=== PATIENT | female | born 1965 | race Caucasian/White ===

== ENCOUNTER 2017-09-17 02:02 | Emergency (ER) | payer BC, OTHER ==
[2017-09-17 02:26] VITALS: BMI 33.1
--- NOTE | 2017-09-17 02:44 | DR.GENAD ---
HPI - PCP Primary Care Physician: EASTON - Complaint/Symptoms Chief Complaint Doctors Comments: Demetrius fell in while in [facility], [place] bryson of abdomen and chest was negative. She presents today complaining of abdomen pain, dysuria and chest wall pain. Chief Complaint:: PT STATES" I FELL IN THE [facility] A WEEK AGO AND I HURT ON MY RT BREAST AREA WHERE MY RIBS ARE. MY FEET ARE ALWAYS COLD I WEAR SOCKS AND THEY STILL DON'T GET WARM I'M ALSO HURTING IN MY LOWER RT SIDE I BEEN SEEING DR RUBALCAVA FOR KIDNEY STONES SO I'M NOT SURE IF THAT IS WHAT IS WRONG" - Source History Provided: Patient - Mode of Arrival Mode of Arrival: Ambulatory - Timing Onset of Chief Complaint: 09/08/17 PMH - PMH Past Medical History: Yes Past Medical History: Anemia, Coronary Artery Disease, Diabetes, Dyslipidemia, Hypertension Past Surgical History: Yes Surgical History: Cholecystectomy, GAM[employer]ING [employer]OR Surgery Past Surgical History Comment: PACEMAKER - Family History History of Family Medical Conditions: Yes Family Medical History: Diabetes Mellitus, Cancer, Coronary Artery Disease, Heart Failure, Hypertension - Social History Type of Tobacco Use: Cigarettes Alcohol Use: None Do you use any recreational Drugs:: No Lives With: Family Lives Where: Home - infectious screening In the last 2 months have you had wt loss of >10#?: NO Have you had fever, night sweats or hemotysis?: No Have you traveled outside the country in the last 6 months?: No Isolation: Standard ROS - Review of Systems Eyes: No Symptoms Reported ENTM: No Symptoms Reported Respiratoy: No Symptoms Reported Cardiovascular: No Symptoms Reported Gastrointestinal/Abdominal: No Symptoms Reported Genitourinary: No Symptoms Reported Neurological: No Symptoms Reported Musculoskeletal: No Symptoms Reported Integumentary: No Symptoms Reported Hematologic/Lymphatic: No Symptoms Reported Endocrine: No Symptoms Reported Psychiatric: No Symptoms Reported All Other Systems: Reviewed and Negative PE - Vital Signs Vitals: Temperature 97.3 F Pulse Rate 84 Respiratory Rate 16 Blood Pressure 179/81 O2 Sat by Pulse Oximetry 96 - General General Appearance: Alert, In No Apparent Distress - Head Head Exam: Normal Inspection, Atraumatic - Eyes Eye exam: Normal Appearance, PERRL, EOMI - ENT ENT Exam: Normal Exam, Normal Oropharynx External Ear Exam: Normal External Inspection TM/Canal Exam: Bilateral Normal Nose Exam: Normal Nose Exam Mouth Exam: Normal Inspection Throat Exam: Normal Inspection - Neck Neck Exam: Normal Inspection, Full ROM - Chest Chest Inspection: Normal Inspection - Respiratory Respiratory Exam: Normal Lung Sounds Bilat Respiratory Exam: Bilateral Clear to Auscultation - Cardiovascular Cardiovascular Exam: Regular Rate, Normal Rhythm - Abdominal Exam Abdominal Exam: Normal Inspection, Normal Bowel Sounds, Soft, Distention Abdominal Tenderness: RLQ, LLQ, Suprapubic - Extremities Extremities Exam: Normal Inspection, Full ROM - Back Back Exam: Normal Inspection, Full ROM - Neurologic Neurological Exam: Alert, Oriented X3, CN II-XII Intact - Psychiatric Psychiatric Exam: Normal Affect - Skin Skin Exam: Warm, Dry, Intact Course - Treatment Treatment: Patient states that she usually run high glucose; she will be able to get down when she goes home. - Reevaluation 1st: Unchanged ROR - Labs Reviewed Laboratory Results Reviewed?: Yes (Urine: leukocyte +, +1 bld) Result Diagrams: 09/17/17 03:35 09/17/17 03:35 Laboratory: WBC 8.3 X10^3/uL (3.6-10.0) 09/17/17 03:35 RBC 4.26 X10^6/uL (3.5-5.4) 09/17/17 03:35 Hgb 12.3 g/dL (12.0-16.0) 09/17/17 03:35 Hct 37.7 % (36.0-47.0) 09/17/17 03:35 MCV 88.4 fL (80.0-100.0) 09/17/17 03:35 MCH 28.8 pg (27.0-34.0) 09/17/17 03:35 MCHC 32.6 g/dL (33.0-35.0) L 09/17/17 03:35 RDW 14.4 % (11.6-16.5) 09/17/17 03:35 Plt Count 309 X10^3/uL (150.0-450.0) 09/17/17 03:35 MPV 7.8 fL (7.4-11.0) 09/17/17 03:35 Neut % 69.0 % (42.0-75.0) 09/17/17 03:35 Lymph % 22.0 % (21.0-51.0) 09/17/17 03:35 Rooks % 6.1 % (0.0-13.0) 09/17/17 03:35 Eos % 2.2 % (0.9-2.9) 09/17/17 03:35 Baso % 0.7 % (0.2-1.0) 09/17/17 03:35 Neut # 5.7 x10^3/uL (2.2-4.8) H 09/17/17 03:35 Lymph # 1.8 X10^3/uL (1.3-2.9) 09/17/17 03:35 Rooks # 0.5 x10^3/uL (0.3-0.8) 09/17/17 03:35 Eos # 0.2 x10^3/uL (0.0-0.2) 09/17/17 03:35 Baso # 0.1 X10^3/uL (0.0-0.1) 09/17/17 03:35 Absolute Nucleated RBC 0.0 /100WBC 09/17/17 03:35 Sodium 141 mmol/L (136-145) 09/17/17 03:35 Corrected Sodium 151 mmol/L (136-145) H 09/17/17 03:35 Potassium 3.8 mmol/L (3.5-5.1) 09/17/17 03:35 Chloride 103 mmol/L (98-107) 09/17/17 03:35 Carbon Dioxide 28.9 mmol/L (21-32) 09/17/17 03:35 BUN 18 mg/dL (7-18) 09/17/17 03:35 Creatinine 1.10 mg/dL (0.55-1.02) H 09/17/17 03:35 Est GFR (MDRD) Af Amer > 60 (>60) 09/17/17 03:35 Est GFR (MDRD) Non-Af 56 (>60) L 09/17/17 03:35 Glucose 511 mg/dL (65-99) H* 09/17/17 03:35 Calcium 9.3 mg/dL (8.5-10.1) 09/17/17 03:35 Specimen Type Clean catch urine 09/17/17 02:59 Urine Color Yellow (YELLOW) 09/17/17 02:59 Urine Appearance Clear (CLEAR) 09/17/17 02:59 Urine pH 6.0 (5.0 - 8.0) 09/17/17 02:59 Ur Specific [place] 1.010 (1.000-1.030) 09/17/17 02:59 Urine Protein Negative (NEGATIVE) 09/17/17 02:59 Urine Glucose (UA) 4+ (NEGATIVE) 09/17/17 02:59 Urine Ketones Negative (NEGATIVE) 09/17/17 02:59 Urine Occult Blood 1+ (NEGATIVE) 09/17/17 02:59 Urine Nitrite Negative (NEGATIVE) 09/17/17 02:59 Urine Bilirubin Negative (NEGATIVE) 09/17/17 02:59 Urine Urobilinogen Normal (NORMAL) 09/17/17 02:59 Ur Leukocyte Esterase 1+ (NEGATIVE) 09/17/17 02:59 Urine RBC 3-6 /HPF (NEGATIVE) 09/17/17 02:59 Urine WBC 1-4 /HPF (NEGATIVE) 09/17/17 02:59 Ur Squamous Epith Cells Rare /HPF (NEGATIVE) 09/17/17 02:59 Urine Bacteria Trace /HPF (NEGATIVE) 09/17/17 02:59 Ur Culture Indicated? No/not indicated 09/17/17 02:59 - Diagnosis Discharge Problem: UTI (urinary tract infection) Qualifiers: Urinary tract infection type: acute cystitis Hematuria presence: with hematuria Qualified Code(s): N30.01 - Acute cystitis with hematuria Uncontrolled diabetes mellitus with hyperglycemia Qualifiers: Diabetes mellitus type: type 1 Qualified Code(s): E10.65 - Type 1 diabetes mellitus with hyperglycemia Peripheral neuropathy Qualifiers: Peripheral neuropathy type: polyneuropathy associated with underlying disease Qualified Code(s): G63 - Polyneuropathy in diseases classified elsewhere - Discharge Plan Condition: Stable - Follow ups/Referrals Follow ups/Referrals: LORNA MCCORMACK [Primary Care Provider] - 3 days - Instructions
[2017-09-17 03:12] LABS: BILIRUBIN,URINE NEGATIVE (NEGATIVE); BLOOD/HEMOGLOBIN,URINE 1+ (NEGATIVE); GLUCOSE, URINE 4+ (NEGATIVE); KETONES,URINE NEGATIVE (NEGATIVE); LEUKOCYTE ESTERASE ,URINE 1+ (NEGATIVE); NITRITES,URINE NEGATIVE (NEGATIVE); PROTEIN,URINE NEGATIVE (NEGATIVE); UROBILINOGEN,URINE NORMAL (NORMAL)
[2017-09-17 03:28] LABS: APPEARANCE,URINE CLEAR (CLEAR); BACTERIA,URINE TRACE /HPF (NEGATIVE); COLOR,URINE YELLOW (YELLOW); SQUAMOUS EPITHELIAL CELL,UR RARE /HPF (NEGATIVE)
[2017-09-17 03:55] LABS: BASOPHILS # (AUTO) 0.1 X10^3/uL (0.0-0.1); BASOPHILS % (AUTO) 0.7 % (0.2-1.0); EOSINOPHILS # (AUTO) 0.2 x10^3/uL (0.0-0.2); EOSINOPHILS % (AUTO) 2.2 % (0.9-2.9); HEMATOCRIT 37.7 % (36.0-47.0); HEMOGLOBIN 12.3 g/dL (12.0-16.0); LYMPHOCYTES # (AUTO) 1.8 X10^3/uL (1.3-2.9); MEAN CORPUSCULAR HEMOGLOBIN 28.8 pg (27.0-34.0); MEAN CORPUSCULAR HGB CONC 32.6 g/dL (33.0-35.0); MEAN CORPUSCULAR VOLUME 88.4 fL (80.0-100.0); MEAN PLATELET VOLUME 7.8 fL (7.4-11.0); MONOCYTES # (AUTO) 0.5 x10^3/uL (0.3-0.8); MONOCYTES % (AUTO) 6.1 % (0.0-13.0); NEUTROPHILS # (AUTO) 5.7 x10^3/uL (2.2-4.8); PLATELET COUNT 309 X10^3/uL (150.0-450.0); RED BLOOD COUNT 4.26 X10^6/uL (3.5-5.4); RED CELL DISTRIBUTION WIDTH 14.4 % (11.6-16.5); WHITE BLOOD COUNT 8.3 X10^3/uL (3.6-10.0)
[2017-09-17 04:05] LABS: BLOOD UREA NITROGEN 18 mg/dL (7-18); CALCIUM 9.3 mg/dL (8.5-10.1); CARBON DIOXIDE 28.9 mmol/L (21-32); CHLORIDE 103 mmol/L (98-107); COR NA(FOR HYPERGLY) 151 mmol/L (136-145); SODIUM 141 mmol/L (136-145); eGFR BLACK RACES > 60 (>60); eGFR NON BLACK RACES 56 (>60)
[2017-09-17 05:25] VITALS: BP 149/78
== END 2017-09-17 05:28 | disposition home or self-care (01) ==
LOC: ER 02:02
DX: N30.01 Acute cystitis with hematuria (principal); E10.65 Type 1 diabetes mellitus with hyperglycemia; G63 Polyneuropathy in diseases classified elsewhere; W19.XXXA Unspecified fall, initial encounter; Y92.89 Other specified places as the place of occurrence of the external cause
CPT/HCPCS: 36415; 80048; 81001; 85025; 99282